=== PATIENT | female | born 1995 | race Caucasian/White ===

== ENCOUNTER 2020-08-26 18:10 | Inpatient (IN) | payer BC, OTHER ==
[~2020-08-26] VITALS: Ht 160 cm; Wt 119.7 kg
[2020-08-26] MEDS ORDERED: ONDANSETRON 4 MG TAB.RAPDIS SL ONE (18:30)
[2020-08-26] MEDS ORDERED: HYDROCODONE/APAP 5/325MG TABLET PO ONE (18:30)
--- NOTE | 2020-08-26 18:30 | NUR ---
[id number] HOME C/O R ANKLE PAIN S/P TRIP AND FALL. +DEFORMITY NOTED. MOM AT BEDSIDE, PER MOM PT HAS AUTISM. PATIENT'S ANKLE ON AN AIR SPLINT FROM EMS. PATIENT KEPT COMFORTABLE IN BED.
[2020-08-26] MEDS ORDERED: HYDROCODONE/APAP 5/325MG TABLET ONE (18:33)
[2020-08-26] MEDS ORDERED: ONDANSETRON 4 MG TAB.RAPDIS ONE (18:35)
[2020-08-26] MEDS ORDERED: MORPHINE SULFATE INJ 4 MG/ML DISP.SYRIN ONE (18:38)
--- NOTE | 2020-08-26 18:40 | NUR ---
NORCO NOT GIVEN, PER MOM PATIENT WILL NOT TAKE PO MEDS. ZIA GILLIS MADE AWARE.
[2020-08-26] MEDS ORDERED: MORPHINE SULFATE INJ 2 MG/ML DISP.SYRIN IM ONE (19:00)
--- NOTE | 2020-08-26 19:22 | NUR ---
IV LINE ESTABLISHED ON LEFT HAND 20 IV.
--- NOTE | 2020-08-26 19:39 | NUR ---
PAGED ORTHO COMPUTER NUMERICAL CONTROL OPERATOR (DR. ERVIN). CURRENTLY SPEAKING WITH PA.
[2020-08-26] MEDS ORDERED: MORPHINE SULFATE INJ 2 MG/ML DISP.SYRIN IV ONE (20:30)
[2020-08-26] MEDS ORDERED: MORPHINE SULFATE INJ 2 MG/ML DISP.SYRIN ONE (20:31)
[2020-08-26] MEDS ORDERED: PROPOFOL 0 ML IV ONE (20:38)
[2020-08-26] MEDS ORDERED: PROPOFOL 1,000 MG/100 ML BOTTLE IV ONE (21:00)
[2020-08-26] MEDS ORDERED: PROPOFOL 20 ML IV ONE (21:00)
[2020-08-26] MEDS ORDERED: IV NS 0.9% 1,000 ML IV ONE (21:00)
--- NOTE | 2020-08-26 21:12 | NUR ---
RADIOLOGY AT BEDSIDE
--- NOTE | 2020-08-26 21:36 | NUR ---
KEEP PT NPO
--- NOTE | 2020-08-26 21:44 | NUR ---
REPORT GIVEN TO KATIE CUNNINGHAM FOR LYUDMILA.
--- NOTE | 2020-08-26 21:58 | NUR ---
AWAITING LAB TO DRAW PT'S BLOOD, THEN WILL BE TRANSFERED.
[2020-08-26 22:07] LABS: BASOPHILS % (AUTO) 0.2 % (0.0-2.0); EOSINOPHILS % (AUTO) 0.2 % (0.0-6.0); HEMATOCRIT 35 % (33-45); LYMPHOCYTES # (AUTO) 0.9 K/uL (0.8-4.8); MEAN CORPUSCULAR HGB CONC 32 g/dl (31.0-36.0); MEAN CORPUSCULAR VOLUME 74 fL (82-100); MONOCYTES # (AUTO) 0.6 K/uL (0.1-1.30); MONOCYTES % (AUTO) 3.3 % (2.0-12.0); NEUTROPHILS # (AUTO) 16.9 K/uL (1.8-8.9); NEUTROPHILS % (AUTO) 91.3 % (43.0-81.0); PLATELET COUNT (AUTO) 260 K/uL (150-450); RED BLOOD CELL COUNT(AUTO) 4.69 MIL/uL (4.0-5.2); WHITE BLOOD COUNT (AUTO) 18.5 K/uL (4.3-11.0)
[2020-08-26 22:16] LABS: CALCIUM, SERUM 7.7 mg/dL (8.5-10.1); CREATININE 0.7 mg/dL (0.6-1.3); POTASSIUM 4.1 mmol/L (3.5-5.1)
[2020-08-26] MEDS ORDERED: MAG HYDROX/AL HYDROX/SIMETH 30 ML UDC PO PRN (22:30)
[2020-08-26] MEDS ORDERED: Z GUARD REMEDY 2 OZ OINT TP PRN (22:30)
[2020-08-26] MEDS ORDERED: IV D5/0.45 NACL 1,000 ML IV PRN (22:30)
[2020-08-26] MEDS ORDERED: MAGNESIUM HYDROXIDE 30 ML UDC PO PRN (22:30)
[2020-08-26] MEDS ORDERED: ONDANSETRON HCL/PF 4 MG/2 ML VIAL IVP PRN (22:30)
--- NOTE | 2020-08-26 22:59 | NUR ---
URINE SENT TO LAB.
--- NOTE | 2020-08-26 23:10 | NUR ---
RN NOTES RECEIVED PATIENT FROM ER WITH DX. OF MALLEOLAR FRACTURE, MOTHER AT BEDSIDE, PATIENT IS HIGHLY FUNCTIONING AUTISTIC, A/OX3, PATIENT HAD CLOSED REDUCTION OF RIGHT ANKLE IN ER, DRESSING INTACT, MOTHER REFUSED TO HAVE HER DAUGHTER SKIN ASSESSMENT , WILL TRY AGAIN LATER, ADMISSION INSTRUCTION WAS GIVEN, CALL LIGHT WITHIN REACH, [id number], WILL CONTINUE TO MONITOR
[2020-08-26] MEDS: MORPHINE SULFATE INJ 2 MG/ML DISP.SYRIN IV PRN (23:29)
--- NOTE | 2020-08-26 23:30 | NUR ---
RN NOTES PATIENT WAS ASKING FOR PAIN MEDICATION- MORPHINE 1 MG IV GIVEN ORDERED, V/S STABLE
[2020-08-26] MEDS ORDERED: CEFTRIAXONE 1 G VIAL ONE (23:33)
[2020-08-26] MEDS: CEFTRIAXONE 1 G in IV D5W 50 ML IV SCH (23:36)
[2020-08-26 23:45] VITALS: BP 126/69
[2020-08-27] MEDS ORDERED: FLUO40CA8 PO (01:12)
--- NOTE | 2020-08-27 02:20 | NUR ---
RN NOTES SPOKE TO DARLEEN WAKEFIELD IS COMPLAINING OF PAIN , I JUST GAVE MORPHINE 1MG 2 HRS AGO, DARLEEN RODRIGUEZ ORDERED TO GIVE ANOTHER MORPHINE 1 MG IV X1, ORDER NOTED AND CARRIED OUT
[2020-08-27] MEDS ORDERED: MORPHINE SULFATE INJ 2 MG/ML DISP.SYRIN IV ONE ×2 (02:30→08:30)
--- NOTE | 2020-08-27 06:00 | NUR ---
RN NOTES COMPLAINED OF RIGHT ANKLE PAIN- MORPHINE 1 MG IV GIVEN ORDERED, V/S STABLE
[2020-08-27] MEDS: MORPHINE SULFATE INJ 2 MG/ML DISP.SYRIN IV PRN ×5 (06:04→23:43)
[2020-08-27 06:33] LABS: BASOPHILS % (AUTO) 0.3 % (0.0-2.0); EOSINOPHILS % (AUTO) 1.4 % (0.0-6.0); HEMATOCRIT 33 % (33-45); HEMOGLOBIN 10.4 g/dL (11.5-14.8); LYMPHOCYTES # (AUTO) 0.9 K/uL (0.8-4.8); LYMPHOCYTES % (AUTO) 9.5 % (20.0-44.0); MEAN CORPUSCULAR HGB CONC 32 g/dl (31.0-36.0); MEAN CORPUSCULAR VOLUME 76 fL (82-100); MONOCYTES # (AUTO) 0.5 K/uL (0.1-1.30); MONOCYTES % (AUTO) 5.5 % (2.0-12.0); NEUTROPHILS # (AUTO) 8.2 K/uL (1.8-8.9); NEUTROPHILS % (AUTO) 83.3 % (43.0-81.0); PLATELET COUNT (AUTO) 281 K/uL (150-450); RED BLOOD CELL COUNT(AUTO) 4.34 MIL/uL (4.0-5.2); WHITE BLOOD COUNT (AUTO) 9.8 K/uL (4.3-11.0)
[2020-08-27 06:50] LABS: CALCIUM, SERUM 7.7 mg/dL (8.5-10.1); CREATININE 0.8 mg/dL (0.6-1.3); MAGNESIUM 1.9 mg/dL (1.8-2.4); PHOSPHORUS 2.7 mg/dL (2.5-4.9)
--- NOTE | 2020-08-27 06:52 | NUR ---
RN NOTES AWAKE MORNING CARE RENDERED, CALL LIGHT WITHIN REACH, [id number], PT. NEEDS ATTENDED
[2020-08-27 07:02] LABS: THYROID STIMULATING HORMONE 2.405 uIU/mL (0.358-3.74)
--- NOTE | 2020-08-27 07:35 | NUR ---
RN OPENING NOTE PT AWAKE IN BED RESTING. ON RA WITH NO SOB OR RESPIRATORY DISTRESS PRESENT. A/O X3 AND GREEK SPEAKING. COMPLAINT OF PAIN PRESENT / AND PAIN MEDS GIVEN PER PROTOCOL. NO NAUSEA PRESENT. NO GASOLINE FINISHER PRESENT. NO EDEMA PRESENT. SELF AMBULATORY. L ANKLE BRUISE PRESENT AND WOUND PICTURES IN CHART. PT IS NPO DUE TO UPCOMING SURGERY. IV PRESENT ON L HAND 20G AND FLUSHES WELL. SALINE LOCKED. LABS AND ORDERS REVIEWED. SAFETY MEASURES IN PLACE. SIDE RAILS RAISED. BED LOWERED. CALL LIGHT WITHIN REACH. WILL CONTINUE TO MONITOR.
[2020-08-27 08:00] VITALS: BP 120/62
[2020-08-27] MEDS: PANTOPRAZOLE 40 MG VIAL IV SCH (08:21)
[2020-08-27] MEDS: ACETAMINOPHEN 325 MG TABLET PO PRN ×2 (11:49→17:26)
[2020-08-27 16:00] VITALS: BP 112/74
--- NOTE | 2020-08-27 19:12 | NUR ---
RN CLOSING NOTE PT AWAKE IN BED RESTING. ON RA WITH NO SOB OR RESPIRATORY DISTRESS PRESENT. A/O X3 AND CROATIAN SPEAKING. COMPLAINT OF PAIN PRESENT / AND PAIN MEDS GIVEN PER PROTOCOL. NO NAUSEA PRESENT. NO AUDITING CONTROL CLERK PRESENT. NO EDEMA PRESENT. SELF AMBULATORY. L ANKLE BRUISE PRESENT AND WOUND PICTURES IN CHART. PENDING TRANSFER TO HIGHER LEVEL OF CARE. IV PRESENT ON L HAND 20G AND FLUSHES WELL. SALINE LOCKED. LABS AND ORDERS REVIEWED. ROUTINE MEDS GIVEN. SAFETY MEASURES IN PLACE. SIDE RAILS RAISED. BED LOWERED. CALL LIGHT WITHIN REACH. REPORT GIVEN TO NIGHT NURSE FOR LYUDMILA.
[2020-08-27] MEDS ORDERED: HYDROCODONE/APAP 5/325MG TABLET PO PRN (19:30)
--- NOTE | 2020-08-27 19:30 | NUR ---
MS RN OPENING NOTES RECEIVED PATIENT IB BED, AWAKE, A&O X 4. ON RA WITH NO SOB OR RESPIRATORY DISTRESS PRESENT. WITH COMPLAINTS OF PAIN ON RIGHT LOWER EXTREMITY, PAIN SCALE OF 6/10 AND PAIN MEDS GIVEN PER PROTOCOL. NO NAUSEA PRESENT. L ANKLE BRUISE PRESENT. PENDING TRANSFER TO HIGHER LEVEL OF CARE. IV PRESENT ON L HAND 20G PATENT AND FLUSHES WELL. SALINE LOCKED. SAFETY MEASURES IN PLACE; BED ON LOWEST LOCKED POSITION, KEPT SIDE RAILS RAISED X2. KADY LIGHT WITHIN EASY REACH. WILL CONTINUE TO MONITOR PATIENT'S CURRENT STATUS.
[2020-08-27 20:00] VITALS: BP 97/66
--- NOTE | 2020-08-27 20:03 | NUR ---
PAIN MANAGEMENT PATIENT HAS C/O RIGHT FOOT PAIN WITH PAIN SCALE OF 6/10. OR NORCO GIVEN ORDERED.
[2020-08-27] MEDS: CEFTRIAXONE 1 G in IV D5W 50 ML IV SCH (22:31)
--- NOTE | 2020-08-27 23:43 | NUR ---
PAIN MANAGEMENT PATIENT HAS C/O RIGHT FOOT PAIN WITH PAIN SCALE OF 9/10. PRN MORPHINE GIVEN ORDERED.
[2020-08-28] MEDS: ACETAMINOPHEN 325 MG TABLET PO PRN ×3 (01:40→20:17)
[2020-08-28] MEDS: MORPHINE SULFATE INJ 2 MG/ML DISP.SYRIN IV PRN ×2 (04:47→08:57)
--- NOTE | 2020-08-28 06:39 | NUR ---
MS RN CLOSING NOTES PATIENT IB BED, ASLEEP, EASILY AWAKEN BY VERBAL AND TACTILE STIMULI. ON RA WITH NO ACUTE DISTRESS NOTED. WITH COMPLAINTS OF PAIN ON RIGHT LOWER EXTREMITY, PAIN SCALE OF 3/10 AND PAIN MEDS GIVEN ORDERED. NO NAUSEA PRESENT. L ANKLE BRUISE PRESENT. PENDING TRANSFER TO HIGHER LEVEL OF CARE. IV PRESENT ON L HAND 20G PATENT AND FLUSHES WELL. SALINE LOCKED. SAFETY MEASURES IN PLACE AND MAIANTAINED DURING THE SHIFT; BED ON LOWEST LOCKED POSITION, KEPT SIDE RAILS RAISED X2. KADY LIGHT WITHIN EASY REACH. ALL NEEDS ATTENDED AND MET. WILL ENDORSE TO MORNING NURSE FOR LYUDMILA.
--- NOTE | 2020-08-28 07:10 | NUR ---
MS RN OPENING NOTES RECEIVED PATIENT IB BED, AWAKE, A&O X 4. ON ROOM AIR WITH NO RESPIRATORY DISTRESS NOTED. WITH EVEN AND UNLABORED BREATHING. WITH COMPLAINTS OF PAIN ON RIGHT LOWER EXTREMITY, PAIN SCALE OF 3/10. WITH L ANKLE BRUISE PRESENT. PENDING TRANSFER TO HIGHER LEVEL OF CARE. IV PRESENT ON L HAND 20G PATENT AND INTACT WITH SALINE LOCK. SAFETY MEASURES IN PLACE; BED ON LOWEST LOCKED POSITION, KEPT SIDE RAILS RAISED X2. CALL LIGHT AND BEDSIDE TABLE WITHIN REACH AT ALL TIMES. WILL CONTINUE TO MONITOR PATIENT
[2020-08-28 08:18] VITALS: BP 122/59
[2020-08-28] MEDS: PANTOPRAZOLE 40 MG VIAL IV SCH (08:54)
[2020-08-28] MEDS: LORAZEPAM 1 MG TABLET PO PRN ×2 (11:14→18:10)
[2020-08-28] MEDS: oxyCODONE IR immediate release 5 MG PO PRN (14:28)
[2020-08-28 16:28] VITALS: BP 109/64
--- NOTE | 2020-08-28 17:00 | NUR ---
MS RN CLOSING NOTES RECEIVED PATIENT ON BED, AWAKE, A&O X 4. ON ROOM AIR WITH NO RESPIRATORY DISTRESS NOTED. WITH EVEN AND UNLABORED BREATHING. WITH COMPLAINTS OF PAIN ON RIGHT LOWER EXTREMITY, PAIN SCALE OF 3/10. WITH L ANKLE BRUISE PRESENT. PENDING TRANSFER TO HIGHER LEVEL OF CARE. IV PRESENT ON L HAND 20G PATENT AND INTACT WITH SALINE LOCK. SAFETY MEASURES IN PLACE; BED ON LOWEST LOCKED POSITION, KEPT SIDE RAILS RAISED X2. CALL LIGHT AND BEDSIDE TABLE WITHIN REACH AT ALL TIMES. WILL ENDORSE TO NEXT SHIFT FOR CONTINUITY OF CARE.
--- NOTE | 2020-08-28 19:39 | NUR ---
MS RN OPENING NOTES RECEIVED PATIENT IB BED, AWAKE, A&O X 4. ON RA WITH NO SOB OR RESPIRATORY DISTRESS PRESENT. WITH COMPLAINTS OF PAIN ON RIGHT LOWER EXTREMITY, PAIN SCALE OF 2/10. NO NAUSEA PRESENT. L ANKLE BRUISE PRESENT. PENDING TRANSFER TO HIGHER LEVEL OF CARE. IV PRESENT ON L HAND 20G PATENT AND FLUSHES WELL. SALINE LOCKED. SAFETY MEASURES IN PLACE; BED ON LOWEST LOCKED POSITION, KEPT SIDE RAILS RAISED X2. CALL LIGHT WITHIN EASY REACH. WILL CONTINUE TO MONITOR PATIENT'S CURRENT STATUS.
[2020-08-28 20:00] VITALS: BP 149/61
[2020-08-28] MEDS ORDERED: LORAZEPAM 0.5 MG TABLET PO STA (20:51)
[2020-08-28 21:09] VITALS: BP 144/61
[2020-08-28] MEDS: CEFTRIAXONE 1 G in IV D5W 50 ML IV SCH (23:04)
[2020-08-29] MEDS: oxyCODONE IR immediate release 5 MG PO PRN ×2 (00:12→18:11)
[2020-08-29] MEDS: ACETAMINOPHEN 325 MG TABLET PO PRN ×2 (05:20→10:35)
--- NOTE | 2020-08-29 06:34 | NUR ---
MS RN CLOSING NOTES PATIENT IN BED, ASLEEP, EASILY AWAKEN BY VERBAL AND TACTILE STIMULI. ON RA WITH NO ACUTE DISTRESS NOTED. WITH COMPLAINTS OF PAIN ON RIGHT LOWER EXTREMITY, PAIN SCALE OF 3/10 AND PAIN MEDS GIVEN ORDERED. NO NAUSEA PRESENT. L ANKLE BRUISE NOTED. PENDING TRANSFER TO HIGHER LEVEL OF CARE, AWAITING BED AVAILABILITY. IV PRESENT ON L HAND 20G PATENT AND FLUSHES WELL. SALINE LOCKED. SAFETY MEASURES IN PLACE AND MAINTAINED DURING THE SHIFT; BED ON LOWEST LOCKED POSITION, KEPT SIDE RAILS RAISED X2. KADY LIGHT WITHIN EASY REACH. ALL NEEDS ATTENDED AND MET. WILL ENDORSE TO MORNING NURSE FOR LYUDMILA.
[2020-08-29] MEDS ORDERED: PANTOPRAZOLE 40 MG TABLET.DR PO SCH (07:30)
--- NOTE | 2020-08-29 07:30 | NUR ---
received pt. this am,alert and oriented x3-4. mother at bedside.vs stable
[2020-08-29 08:00] VITALS: BP 119/56
--- NOTE | 2020-08-29 10:36 | NUR ---
GIVEN TYLENOL FOR ERICA. ANKLE PAIN.
[2020-08-29] MEDS: LORAZEPAM 1 MG TABLET PO PRN (15:28)
[2020-08-29 16:00] VITALS: BP 140/66
--- NOTE | 2020-08-29 18:00 | NUR ---
REPORT CALLED TO MARIA ANTONIA AT [facility].HEP LOCK OUT NON FUNCTIONAL.
--- NOTE | 2020-08-29 19:35 | NUR ---
MS RN NOTES PT RECEIVED IN BED, ASLEEP, EASILY AWAKEN BY VERBAL AND TACTILE STIMULI. ON RA WITH NO ACUTE DISTRESS NOTED OR PAIN REPORTED OR NOTED AT THIS TIME. AWAITING TRANSPORTATION FOR TRANSFER TO [place] PER DAY SHIFT NURSE REPORT GIVEN TO MARIA ANTONIA CUNNINGHAM. PTS BROTHER AT BEDSIDE AT THIS TIME. SAFETY MEASURES IN PLACE AND MAINTAINED DURING THE SHIFT; BED ON LOWEST LOCKED POSITION, KEPT SIDE RAILS RAISED X2. CALL LIGHT WITHIN EASY REACH. ALL NEEDS ATTENDED AND MET.WILL CONTINUE TO MONITOR.
[2020-08-29 19:57] VITALS: BP 101/73
[2020-08-29 20:00] VITALS: BP 131/61
--- NOTE | 2020-08-29 20:13 | NUR ---
MS RN NOTES PT PICKED UP VIA GURNEY BY TWO [employer] PLASTERER MOTHER AND BROTHER IN THE ROOM. VITAL SIGNS WITHIN NORMAL LIMITS ALL PAPERWORK GIVEN TO EMT.
== END 2020-08-29 20:20 | disposition short-term general hospital (02) | DRG 563 ==
LOC: ER 18:28 → MED 21:27
PROVIDERS: ADMIT Registered Nurse; ATTEND Hospitalist
PROC: 0QSJXZZ Reposition Right Fibula, External Approach (ICD-10-PCS; principal; 2020-08-26)
PROC: 0QSGXZZ Reposition Right Tibia, External Approach (ICD-10-PCS; 2020-08-26)
PROC: 2W3QX1Z Immobilization of Right Lower Leg using Splint (ICD-10-PCS; 2020-08-26)
DX: S82.851A Displaced trimalleolar fracture of right lower leg, initial encounter for closed fracture (principal); F84.0 Autistic disorder; Z68.41 Body mass index [BMI] 40.0-44.9, adult; W01.0XXA Fall on same level from slipping, tripping and stumbling without subsequent striking against object, initial encounter; X50.1XXA Overexertion from prolonged static or awkward postures, initial encounter; Y92.009 Unspecified place in unspecified non-institutional (private) residence as the place of occurrence of the external cause; Z20.822 Contact with and (suspected) exposure to COVID-19; G80.9 Cerebral palsy, unspecified; E66.01 Morbid (severe) obesity due to excess calories; D72.828 Other elevated white blood cell count; S92.311A Displaced fracture of first metatarsal bone, right foot, initial encounter for closed fracture; S92.321A Displaced fracture of second metatarsal bone, right foot, initial encounter for closed fracture; S92.331A Displaced fracture of third metatarsal bone, right foot, initial encounter for closed fracture; S92.341A Displaced fracture of fourth metatarsal bone, right foot, initial encounter for closed fracture; S82.842A Displaced bimalleolar fracture of left lower leg, initial encounter for closed fracture
CPT/HCPCS: 36415; 71045-TC; 73590-TC; 73610-TC; 73630-TC; 73700-TC; 80048-TC; 80061-TC; 83735-TC; 84100-TC; 84443-TC; 84702-TC; 85025-TC; 85730-TC; 87081-TC; A6403; C9113; C9803; G0378; G0500; J0696; J2270; J2704; J3490; J7050; J7060; Q0162